=== PATIENT | male | born 1975 | race Caucasian/White ===

== ENCOUNTER 2018-10-23 13:41 | Emergency (ER) | payer BC ==
[2018-10-23] MEDS ORDERED: Tetracaine HCl/PF 0.5% 4 ML Bottle EYELF ONE (13:43)
--- NOTE | 2018-10-23 13:50 | EDM.PDOC ---
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 Pt reports irritation/pain is to left eye only and he feels like there's something in his eye. Pt denies any known trauma and can think of a specific event where he got something in his eye. Onset: Today Onset Date: 10/23/18 Duration: Hour(s): (1) Location: Reports: Face Quality: Reports: Other (irritation) Severity: Mild Improves with: Reports: None Worsens with: Reports: None Associated Symptoms: Reports: No Other Symptoms ED ROS GENERAL - Review of Systems Review Of Systems: See Below Constitutional: Reports: No Symptoms HEENT: Reports: Eye Pain Respiratory: Reports: No Symptoms Cardiovascular: Reports: No Symptoms Endocrine: Reports: No Symptoms GI/Abdominal: Reports: No Symptoms : Reports: No Symptoms Musculoskeletal: Reports: No Symptoms Skin: Reports: No Symptoms Neurological: Reports: No Symptoms Psychiatric: Reports: No Symptoms Hematologic/Lymphatic: Reports: No Symptoms Immunologic: Reports: No Symptoms ED EXAM GENERAL W FULL EYE - Physical Exam Exam: See Below Exam Limited By: No Limitations General Appearance: Alert, WD/WN, No Apparent Distress Eye Exam: Bilateral Eye: EOMI, PERRL Eyelids: Bilateral: Normal Appearance Conjunctiva & Sclera: Right: Normal Appearance, Left: Injected Cornea Exam: Right: Normal Appearance, Left: Corneal Abrasion Extraocular Movements: Bilateral: Intact Pupils: Normal Accommodation Pupillary Reaction: Bilateral: Brisk Anterior Chamber: Bilateral: Normal Appearance Posterior Chamber: Bilateral: Normal Funduscopic Throat/Mouth: Normal Inspection, Normal Lips, Normal Teeth, Normal Gums, Normal Oropharynx, Normal Voice, No Airway Compromise Head: Atraumatic, Normocephalic Neck: Normal Inspection, Supple, Non-Tender, Full Range of Motion Respiratory/Chest: No Respiratory Distress, Lungs Clear, Normal Breath Sounds, No Accessory Muscle Use, Chest Non-Tender Cardiovascular: Normal Peripheral Pulses, Regular Rate, Rhythm, No Edema, No Gallop, No JVD, No Murmur, No Rub GI/Abdominal: Normal Bowel Sounds, Soft, Non-Tender, No Organomegaly, No Distention, No Abnormal Bruit, No Mass Back Exam: Normal Inspection, Full Range of Motion, NT Extremities: Normal Inspection, Normal Range of Motion, Non-Tender, Normal Capillary Refill, No Pedal Edema Neurological: Alert, Oriented, CN II-XII Intact, Normal Cognition, Normal Gait, Normal Reflexes, No Motor/Sensory Deficits Psychiatric: Normal Affect, Normal Mood Skin Exam: Warm, Dry, Intact, Normal Color, No Rash Lymphatic: No Adenopathy ED EYE w/ Add Procedure - Eye Procedure Alcaine Drops Administered: Yes Eye FB Removal: no Removal w/ Cotton Swab, no Removal w/ Needle, no Other Eye Irrigated w/ Saline (ccs): 10 Antibiotic Oinment/Drps Admin: Left Eye - Additional/Other Procedure(s) Other (Free Text) Procedure(s) [Text1]: mild corneal abrasion to central part of cornea without complications Course - Orders/Labs/Meds Orders: Active Orders 24 hr Category Date Time Status Vaccines to be Administered [RC] PER UNIT ROUTINE Care 10/23/18 14:02 Ordered Ciprofloxacin [Ciloxan 0.3% Ophth Soln] Med 10/23/18 15:00 Ordered 1 ml EYELF Q4HR Medication Orders Ciprofloxacin (Ciloxan 0.3% Ophth Soln) 1 ml EYELF Q4HR KYRA Meds: Medications Generic Name Dose Route Start Last Admin Trade Name Freq PRN Reason Stop Dose Admin Ciprofloxacin 1 ml 10/23/18 15:00 Ciloxan 0.3% Ophth Soln EYELF Q4HR KYRA Discontinued Medications Generic Name Dose Route Start Last Admin Trade Name Freq PRN Reason Stop Dose Admin Diphtheria/Tetanus/Acell Pertussis 0.5 ml 10/23/18 14:02 Adacel IM 10/23/18 14:03 .ONCE ONE Tetracaine HCl 1 ml 10/23/18 13:43 Tetracaine 0.5% Steri-Unit Padmini EYELF 10/23/18 13:44 ASDIRECTED ONE Departure - Departure Time of Disposition: 14:14 Disposition: Home, Self-Care 01 Condition: Good Clinical Impression: Corneal abrasion, left - Discharge Information Instructions: Corneal Abrasion Forms: ED Department Discharge Additional Instructions: 1. discharge home 2. Ciloxan 3 drops Q4 x 7 days 3. no rubbing eye 4. follow up with PCP for further evaluation and treatment 5. return to ER for worsening symptoms - My Orders Last 24 Hours: My Active Orders 10/23/18 14:02 Vaccines to be Administered [RC] PER UNIT ROUTINE 10/23/18 15:00 Ciprofloxacin [Ciloxan 0.3% Ophth Soln] 1 ml EYELF Q4HR - Assessment/Plan Last 24 Hours: My Active Orders 10/23/18 14:02 Vaccines to be Administered [RC] PER UNIT ROUTINE 10/23/18 15:00 Ciprofloxacin [Ciloxan 0.3% Ophth Soln] 1 ml EYELF Q4HR Assessment:: 1. left corneal abrasion Plan: 1. discharge home 2. Ciloxan 3 drops Q4 x 7 days 3. no rubbing eye 4. follow up with PCP for further evaluation and treatment 5. return to ER for worsening symptoms
[2018-10-23] MEDS ORDERED: Diphtheria,Pertussis(Acell),Tetanus Vaccine 0.5 ML SDV IM ONE (14:02)
[2018-10-23] MEDS ORDERED: Ciprofloxacin 0.3% Ophth Soln 2.5 ML Bottle EYELF SCH (15:00)
[2018-10-23] MEDS ORDERED: Gentamicin 0.3% Ophth Soln 5 ML Bottle EYERT SCH (16:00)
== END 2018-10-23 15:55 | disposition home or self-care (01) ==
LOC: KA.ED 13:41
DX: S05.02XA Injury of conjunctiva and corneal abrasion without foreign body, left eye, initial encounter (principal); Z23 Encounter for immunization; W89.0XXA Exposure to welding light (arc), initial encounter
CPT/HCPCS: 90471; 90715; 99283